=== PATIENT | male | born 2000 | race African-American/Black ===

== ENCOUNTER 2020-02-15 09:21 | Emergency (ER) | payer MEDICAID, OTHER ==
[~2020-02-15] VITALS: Ht 175.3 cm; Wt 100.0 kg
[2020-02-15] MEDS ORDERED: BACITRACIN ZINC OINT UDPKT TOP ONE (10:15)
[2020-02-15] MEDS ORDERED: IBUPROFEN 600MG TABLET PO ONE (10:15)
[2020-02-15] MEDS ORDERED: LIDOCAINE 1%/EPI 1:100,000 10 ML VIAL IJ ONE (10:15)
[2020-02-15 10:21] VITALS: BP 118/82
== END 2020-02-15 12:16 | disposition home or self-care (01) ==
LOC: ER 09:21
DX: S01.81XA Laceration without foreign body of other part of head, initial encounter (principal); M79.642 Pain in left hand; R03.0 Elevated blood-pressure reading, without diagnosis of hypertension; V46.6XXA Car passenger injured in collision with other nonmotor vehicle in traffic accident, initial encounter; Y93.89 Activity, other specified; Y92.488 Other paved roadways as the place of occurrence of the external cause
CPT/HCPCS: 70486; 73130; 99285

== ENCOUNTER 2020-02-22 10:57 | Emergency (ER) | payer MEDICAID ==
[~2020-02-22] VITALS: Ht 185.4 cm; Wt 86.0 kg
[2020-02-22 10:59] VITALS: BP 122/72
== END 2020-02-22 11:45 | disposition home or self-care (01) ==
LOC: ER 11:06
DX: Z48.02 Encounter for removal of sutures (principal)
CPT/HCPCS: 99281